=== PATIENT | female | born 1960 | race Caucasian/White ===

== ENCOUNTER → 2017-05-31 | Outpatient (CLI) | payer MEDICAID ==
[2017-05-31 14:09] LABS: BASOPHILS % (AUTO) 0.4 % (0.2-1.0); HEMATOCRIT 39.1 % (36.0-47.0); HEMOGLOBIN 13.6 g/dL (12.0-16.0); LYMPHOCYTES # (AUTO) 1.5 X10^3/uL (1.3-2.9); LYMPHOCYTES % (AUTO) 26.2 % (21.0-51.0); MEAN CORPUSCULAR HEMOGLOBIN 31.3 pg (27.0-34.0); MEAN CORPUSCULAR HGB CONC 34.7 g/dL (33.0-35.0); MEAN CORPUSCULAR VOLUME 90.2 fL (80.0-100.0); MEAN PLATELET VOLUME 8.3 fL (7.4-11.0); MONOCYTES # (AUTO) 0.3 x10^3/uL (0.3-0.8); MONOCYTES % (AUTO) 5.9 % (0.0-13.0); NEUTROPHILS # (AUTO) 3.9 x10^3/uL (2.2-4.8); NEUTROPHILS % (AUTO) 67.5 % (42.0-75.0); PLATELET COUNT 288 X10^3/uL (150.0-450.0); RED BLOOD COUNT 4.33 X10^6/uL (3.5-5.4); RED CELL DISTRIBUTION WIDTH 13.2 % (11.6-16.5); WHITE BLOOD COUNT 5.7 X10^3/uL (3.6-10.0)
[2017-05-31 14:17] LABS: ALBUMIN 3.5 g/dL (3.4-5.0); BILIRUBIN,DIRECT 0.07 mg/dL (0-0.2); TOTAL PROTEIN 7.1 g/dL (6.4-8.2)
[2017-06-02 21:32] LABS: HEPATITIS A ANTIBODY IGM Negative (Negative)
[2017-06-04 11:24] LABS: HEPATITIS B CORE IGM Negative (Negative); HEPATITIS B SURFACE ANTIGEN Negative (Negative)
[2017-06-04 11:30] LABS: HCV VIRAL LOG 7.2 log IU
== END ==
LOC: LAB 13:35
PROVIDERS: ATTEND Internal Medicine Gastroenterology
DX: B18.2 Chronic viral hepatitis C (principal); R10.84 Generalized abdominal pain
CPT/HCPCS: 36415; 80074; 80076; 85025; 85610; 87522; 87902

== ENCOUNTER 2017-07-21 08:24 | Day surgery (SDC) | payer MEDICAID ==
[2017-07-21] MEDS ORDERED: D5 LR 1000 ML 1,000 ML IV ONE (08:37)
[2017-07-21] MEDS ORDERED: VERSED ONE (09:07)
[2017-07-21] MEDS ORDERED: DIPRIVAN VIAL 20 ML ONE ×2 (10:27→10:43)
[2017-07-21 11:10] VITALS: BP 152/74
== END 2017-07-21 11:14 | disposition home or self-care (01) ==
LOC: SURG1 08:24
PROVIDERS: ATTEND Internal Medicine Gastroenterology
PROC: 0DJD8ZZ Inspection of Lower Intestinal Tract, Via Natural or Artificial Opening Endoscopic (ICD-10-PCS; principal; 2017-07-21 10:15)
DX: Z12.11 Encounter for screening for malignant neoplasm of colon (principal); K64.0 First degree hemorrhoids; R19.4 Change in bowel habit
CPT/HCPCS: A4217; J2250; J3490; J7120

== ENCOUNTER 2017-09-20 15:37 | Emergency (ER) | payer MEDICAID ==
[2017-09-20 15:43] VITALS: BP 137/79; BMI 26.9
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
[2017-09-20] MEDS ORDERED: TORADOL 60 MG VIAL IM ONE (16:34)
[2017-09-20] MEDS ORDERED: TORADOL 60 MG VIAL ONE (16:40)
== END 2017-09-20 17:29 | disposition home or self-care (01) ==
LOC: ER 16:14
DX: G44.329 Chronic post-traumatic headache, not intractable (principal)
CPT/HCPCS: 96372; 99282; J1885